=== PATIENT | female | born 1975 | race Caucasian/White ===

== ENCOUNTER → 2017-01-25 | Outpatient (CLI) | payer MEDICARE, OTHER | LOC: LAB 09:06 | DX: G40.909 Epilepsy, unspecified, not intractable, without status epilepticus (principal) | CPT/HCPCS: 36415; 80156 ==

== ENCOUNTER → 2020-12-05 | Outpatient (CLI) | payer MEDICARE, OTHER | LOC: RAD 09:18 | DX: M25.551 Pain in right hip (principal); M16.11 Unilateral primary osteoarthritis, right hip | CPT/HCPCS: 73502 ==

== ENCOUNTER → 2021-02-03 | Outpatient (CLI) | payer MEDICARE, OTHER | LOC: RAD 13:51 | DX: M79.89 Other specified soft tissue disorders (principal) | CPT/HCPCS: 73130 ==

== ENCOUNTER → 2021-07-09 | Outpatient (CLI) | payer MEDICARE, OTHER | LOC: MAMO 12:27 | DX: Z12.31 Encounter for screening mammogram for malignant neoplasm of breast (principal) | CPT/HCPCS: 77063; 77067 ==

== ENCOUNTER → 2021-11-18 | Outpatient (CLI) | payer MEDICARE, OTHER | LOC: RAD 12:15 | DX: M47.22 Other spondylosis with radiculopathy, cervical region (principal); M54.6 Pain in thoracic spine; M41.9 Scoliosis, unspecified; M50.122 Cervical disc disorder at C5-C6 level with radiculopathy | CPT/HCPCS: 72050; 72070 ==

== ENCOUNTER → 2021-11-25 | Outpatient (CLI) | payer MEDICARE, OTHER | LOC: RAD 09:46 | DX: M54.50 Low back pain, unspecified (principal); M53.3 Sacrococcygeal disorders, not elsewhere classified; M47.816 Spondylosis without myelopathy or radiculopathy, lumbar region; M84.48XA Pathological fracture, other site, initial encounter for fracture | CPT/HCPCS: 72100; 72220 ==

== ENCOUNTER → 2022-03-16 | Outpatient (CLI) | payer MEDICARE, OTHER | LOC: KOH-I 03-15 09:00 | DX: M48.061 Spinal stenosis, lumbar region without neurogenic claudication (principal); M54.50 Low back pain, unspecified; M43.8X6 Other specified deforming dorsopathies, lumbar region; M41.9 Scoliosis, unspecified | CPT/HCPCS: 72148 ==